=== PATIENT | female | born 1990 | race Hispanic/Latino ===

== ENCOUNTER 2016-12-25 02:14 | Inpatient (IN) | payer BC, OTHER ==
[~2016-12-25] VITALS: Ht 152.4 cm; Wt 62.7 kg
[2016-12-25] VITALS (10 sets, daily range): BP systolic 95–128; BP diastolic 50–77
[2016-12-25] MEDS ORDERED: IBUPROFEN800 MG PO (05:32)
[2016-12-26 07:36] VITALS: BP 113/57
[2016-12-26 09:01] LABS: EOSINOPHIL (%) 1.1 % (0-5); EOSINOPHIL COUNT 0.1 K/uL (0-0.3); HEMATOCRIT 36.6 % (36.0-46.0); IMMATURE GRANULOCYTE (%) 0.6 % (0.0-0.7); IMMATURE GRANULOCYTE COUNT 0.1 K/uL; INSTRUMENT ABS NEUTROPHIL CT 8.7 K/uL; LYMPHOCYTE COUNT 2.3 K/uL (1.0-2.8); MCH 30.3 PG (29.0-34.0); MCHC 32.2 G/DL (30.0-36.0); MCV 93.8 FL (83-99); MEAN PLAT.VOLUME 11.9 uM^3 (9.5-12.4); MONOCYTE COUNT 0.7 K/uL (0-0.8); NEUTROPHIL (%) 72.8 % (45-76); NEUTROPHIL COUNT 8.7 K/uL (1.8-6.4); PLATELET COUNT 221 K/uL (156-360); RBC DIS.WIDTH-CV 13.8 % (11.8-14.6); RBC DIS.WIDTH-SD 47.3 % (39-53)
[2016-12-26 15:06] VITALS: BP 109/54
[2016-12-26 22:45] VITALS: BP 118/69
[2016-12-27 07:20] VITALS: BP 100/57
[2016-12-27 10:55] VITALS: BP 114/64
== END 2016-12-27 13:55 | disposition home or self-care (01) | DRG 775 ==
LOC: LDRP-OP 02:14 → 2WEST 02:15 → LDRP-OP 02-07 09:55
PROVIDERS: Midwife
DX: O70.1 Second degree perineal laceration during delivery (principal); O99.824 Streptococcus B carrier state complicating childbirth; Z37.0 Single live birth; Z3A.38 38 weeks gestation of pregnancy
CPT/HCPCS: 85025